=== PATIENT | female | born 1975 | race Caucasian/White ===

== ENCOUNTER → 2017-02-20 | Outpatient (CLI) | payer OTHER ==
[~2017-02-20] MED LIST: ASPIRIN325 PO; B-100 COMPLEX1 EAC1 PO; BACTRIM DS TAB1 EACH PO; EXCEDRIN CAPLE1 EACH PO; GABAPENTIN 100100 MG PO; HUMALOG100 UNIT/1 SUBQ; HUMULIN N100 UNIT/1 SQ; HUMULIN R100 UNIT/M; HUMULINR100 SUBQ; KEFLEX500 M1 PO; LEVEMIR SUBQ; MIGRELIEF CAPL1 EACH; MINOCIN100 MG PO; NORCO 5-325 TA1 EACH PO; NOVOLIN R100 UNIT/1; NOVOLOG100 UNIT/1 SQ; PRILOSEC 10MG C10 M1 PO; TOPAMAX 25 MG T25 M1 PO; TORADOL 10 MG T10 MG PO; TRAMADOL 50 MG50 MG PO; VITAMIN D-32000 UNIT PO
== END ==
LOC: M.MRI 06:57
DX: L03.115 Cellulitis of right lower limb (principal); E11.620 Type 2 diabetes mellitus with diabetic dermatitis

== ENCOUNTER → 2017-07-29 | Outpatient (CLI) | payer OTHER | LOC: M.WC 12:32 | DX: E10.621 Type 1 diabetes mellitus with foot ulcer (principal); L97.521 Non-pressure chronic ulcer of other part of left foot limited to breakdown of skin; L84 Corns and callosities; Z87.891 Personal history of nicotine dependence ==

== ENCOUNTER → 2017-08-05 | Outpatient (CLI) | payer OTHER | LOC: M.WC 00:42 | DX: E10.621 Type 1 diabetes mellitus with foot ulcer (principal); L97.511 Non-pressure chronic ulcer of other part of right foot limited to breakdown of skin; L89.893 Pressure ulcer of other site, stage 3; E10.42 Type 1 diabetes mellitus with diabetic polyneuropathy; Z87.891 Personal history of nicotine dependence ==

== ENCOUNTER 2018-01-04 06:46 | Emergency (ER) | payer OTHER ==
[~2018-01-04] VITALS: Ht 177.8 cm; Wt 96.3 kg
[~2018-01-04 06:46] MED LIST changes: -ASPIRIN325 PO; -BACTRIM DS TAB1 EACH PO; -KEFLEX500 M1 PO; -NORCO 5-325 TA1 EACH PO; -TORADOL 10 MG T10 MG PO
[2018-01-04] MEDS ORDERED: ASPIRIN325 PO (06:58)
[2018-01-04 08:00] LABS: HEMATOCRIT 35.8 % (37.0-47.0); HEMOGLOBIN 11.8 gm/dL (12.0-15.0); MCH 27.4 pg (26.0-34.0); MCHC 32.9 g/dL (28.0-37.0); MCV 83.1 fL (80.0-100.0); MPV 7.4 fl. (7.2-11.1); NUCLEATED RBCS 0 /100WBC; PLATELET COUNT* 227 thou/uL (150-400); RBC 4.31 mil/uL (4.20-5.00); RDW-CV 13.1 % (10.5-14.5); WBC 10.1 thou/uL (4.0-11.0)
[2018-01-04 08:16] LABS: BE -5.7 mmol/L (-2 to +3); HCO3 18.4 mmol/L (22.0-26.0); PCO2 31.4 mmHg (35.0-45.0); PO2 87.2 mmHg (75.0-100.0); pH 7.385 (7.340-7.450)
[2018-01-04 08:24] LABS: CALCIUM 8.8 mg/dL (8.5-10.1); CREATININE 0.9 mg/dL (0.6-1.3); POTASSIUM 3.9 mmol/L (3.5-5.1)
[2018-01-04 08:28] LABS: ALBUMIN 2.6 g/dL (3.4-5.0); MAGNESIUM 2.2 mg/dL (1.8-2.4); TOTAL PROTEIN 7.5 g/dL (6.4-8.2)
[2018-01-04 09:25] LABS: ABSOLUTE LYMPHOCYTES 0.4 thou/uL (0.8-5.3); ABSOLUTE MONOCYTES 0.8 thou/uL (0.0-1.2); ABSOLUTE NEUTROPHILS 8.9 thou/uL (1.6-8.1); PLATELET ESTIMATE ADEQUATE
[2018-01-04] MEDS ORDERED: BACTRIM DS TAB1 EACH PO (09:35)
[2018-01-04] MEDS ORDERED: KEFLEX500 M1 PO (09:35)
[2018-01-04] MEDS ORDERED: NORCO 5-325 TA1 EACH PO (09:36)
[2018-01-04] MEDS ORDERED: TORADOL 10 MG T10 MG PO (09:36)
[2018-01-04 10:13] VITALS: BP 128/51
== END 2018-01-04 10:14 | disposition home or self-care (01) ==
LOC: M.ERS 06:46
PROVIDERS: Personal Emergency Response Attendant
DX: L03.115 Cellulitis of right lower limb (principal); E10.9 Type 1 diabetes mellitus without complications; G43.909 Migraine, unspecified, not intractable, without status migrainosus; Z88.8 Allergy status to other drugs, medicaments and biological substances

== ENCOUNTER → 2018-04-22 | Outpatient (CLI) | payer OTHER ==
[~2018-04-22] MED LIST changes: +ASPIRIN325 PO; +BACTRIM DS TAB1 EACH PO; +KEFLEX500 M1 PO; +NORCO 5-325 TA1 EACH PO; +TORADOL 10 MG T10 MG PO
== END ==
LOC: M.RAD 14:36
DX: M79.89 Other specified soft tissue disorders (principal); M25.521 Pain in right elbow

== ENCOUNTER 2018-05-10 01:59 | Inpatient (IN) | payer OTHER ==
[~2018-05-10] VITALS: Ht 177.8 cm; Wt 106.2 kg
--- NOTE | ~2018-05-10 | CON ---
[address] [address] CONSULTATION Name: CAYLA GAY Room: [place] [address] ADM IN M.R.#: [id number] Admission: 05/10/18 Attend Phys: Judd Crum, Discharge: Date of : 75 Report #: [id number] THIS REPORT FOR: //name// CC: Kelvin Crum DICTATED BY: Kaila Navarro [facility] DATE OF SERVICE: 05/14/2018 Please note at the time of this dictation, the patient was seen and physically examined by myself. REASON FOR CONSULTATION: Ongoing abdominal pain, nausea, vomiting and elevated LFTs. HISTORY OF PRESENT ILLNESS: This is a 43-year-old female who presented to the Emergency Room with worsening of her nausea and vomiting that started prior to her admission. She states she denied any bright red blood or any coffee ground emesis with this. She was also experiencing some abdominal pain in the upper abdomen, particularly in the right upper quadrant. She also noticed that she had been experiencing diarrhea for the past week as well. Her last BM was Thursday of this past week. She also was having some generalized body aches and pains, questionable fever and she had a rash that was noted on her right mosley at that time. The patient was seen by us back in 2008 and had an EGD at that time and was noted to have gastritis. The patient does admit that she takes Mayi Total Body 2 tablets daily, which she has been taking for 15-20 years on a regular basis. She has never had a colonoscopy done either. ALLERGIES: BENADRYL. MEDICATIONS: From home include Mayi aspirin, Mayi Total Body 2 daily, Levemir, Humalog. PAST MEDICAL HISTORY: Diabetic. PAST SURGICAL HISTORY: Tubal ligation, history of migraine headaches and she also had a broken hand and had surgical fixation of that. FAMILY HISTORY: Paternal aunt, pancreatic cancer. SOCIAL HISTORY: She lives with her , former smoker. Alcohol socially and denies any illegal [place] [address] CONSULTATION Name: CAYLA GAY Room: [address]#: [id number] Admission: 05/10/18 Attend Phys: Judd Crum, Discharge: Date of : 75 Report #: [id number] REVIEW OF SYSTEMS: Twelve-point review of systems is essentially negative except what is mentioned in the HPI. PHYSICAL EXAMINATION: VITAL SIGNS: Temperature 36.4, pulse 95, respirations 18, blood pressure 154/61. HEART: Regular rate and rhythm. LUNGS: Clear. ABDOMEN: Soft, positive bowel sounds in all 4 quadrants with right upper quadrant tenderness noted to palpation and into the epigastric area as well as some mild lower abdominal cramping noted as well to palpation. LABORATORY DATA: Hemoglobin on admission was 11.5. She is now 9.2. White count is 4.1, platelets 206. GFR is 91. Total bilirubin is 0.4 and has been normal throughout hospital stay. Alkaline phosphatase currently 306, but has ranged from 203-364 during this hospitalization. ALT 119, on admission was normal at 26, but has gone as high as 173. AST 84, on admission was normal at 23 and has gone up to as high as 408. Ultrasound showed distended gallbladder with mild wall thickening. She had a CCK-PIPIDA that showed 76% ejection fraction, but noted pain during the administration of the medication. IMPRESSION: 1. Nausea and vomiting, continual. 2. Abdominal pain. 3. Chronic nonsteroidal anti-inflammatory drug, aspirin use, 2 Mayi Total Body daily for greater than 15 years. 4. Anemia. 5. Elevated LFTs. 6. Diabetes, uncontrolled. 7. Family history of pancreatic cancer. PLAN: 1. EGD today with Dr. Henderson. 2. Get a GGTP. 3. Further recommendations to be made after the procedure. 4. If the above is negative, may likely consider a GET secondary to her uncontrolled diabetes. Thank you for allowing us to participate in this patient's care. Please do not hesitate to call with any questions in regard to this consult. By: [id number] Berumen MD /nt
--- NOTE | ~2018-05-10 | PROC ---
[facility] [address] [place] [address] PROCEDURE REPORT Name: CAYLA GAY Room: [address] IN ..#: [id number] Admission: 05/10/18 Attend Phys: Judd Crum, Discharge: 05/16/18 Date of : 75 Report #: [id number] THIS REPORT FOR: //name// For GI report, please see the Provation report in Perceptive 7 content. By: 1201Medical Records Staff [place] /[place]
[2018-05-10] MEDS ORDERED: MELOXICAM (02:36)
[2018-05-10] MEDS ORDERED: NOVOLIN R100 UNIT/1 (02:36)
[2018-05-10 02:38] LABS: URINE BLOOD 1+ (Negative); URINE CLARITY CLEAR; URINE COLOR YELLOW; URINE GLUCOSE-RANDOM 3+ (Negative); URINE LEUKOCYTES-REFLEX NEGATIVE (Negative); URINE NITRITE-REFLEX NEGATIVE (Negative); URINE PROTEIN 1+ (Negative); URINE UROBILINOGEN 0.2 E.U./dl (0.2-1.0)
[2018-05-10 02:38] LABS: HEMATOCRIT 36.3 % (37.0-47.0); HEMOGLOBIN 11.5 gm/dL (12.0-15.0); MCH 23.9 pg (26.0-34.0); MCHC 31.8 g/dL (28.0-37.0); MCV 75.2 fL (80.0-100.0); MPV 6.7 fl. (7.2-11.1); NUCLEATED RBCS 0 /100WBC; PLATELET COUNT* 346 thou/uL (150-400); RBC 4.83 mil/uL (4.20-5.00); RDW-CV 16.4 % (10.5-14.5); WBC 14.8 thou/uL (4.0-11.0)
[2018-05-10 02:39] LABS: URINE BILIRUBIN 1+ (Negative); URINE KETONES 3+ (Negative)
[2018-05-10 02:47] LABS: ICTOTEST (BILI CONFIRMATORY) Negative (Negative)
[2018-05-10 03:01] LABS: ALKALINE PHOSPHATASE 203 U/L (46-116); ANION GAP 23 mmol/L (7-16); BUN 12 mg/dL (7-18); CALCIUM 9.4 mg/dL (8.5-10.1); CHLORIDE 98 mmol/L (98-107); CO2 17 mmol/L (21-32); CREATININE 1.6 mg/dL (0.6-1.3); GLUCOSE 150 mg/dL (70-99); LIPASE 47 U/L (73-393); POTASSIUM 3.6 mmol/L (3.5-5.1); SGPT 26 U/L (30-65); SODIUM 138 mmol/L (136-145); TOTAL PROTEIN 7.8 g/dL (6.4-8.2); TROPONIN-I LEVEL <0.06 ng/mL (<0.06)
[2018-05-10 03:33] LABS: SGOT 23 U/L (15-37)
[2018-05-10 03:37] LABS: INFLUENZA A ANTIGEN None Detected (None Detect); INFLUENZA B ANTIGEN None Detected (None Detect)
[2018-05-10 04:39] LABS: BE -3.8 mmol/L (-2 to +3); PCO2 35.9 mmHg (35.0-45.0)
[2018-05-10 04:43] LABS: PO2 34.3 mmHg (75.0-100.0)
[2018-05-10 05:21] LABS: ABSOLUTE LYMPHOCYTES 0.7 thou/uL (0.8-5.3); ABSOLUTE MONOCYTES 0.6 thou/uL (0.0-1.2); ABSOLUTE NEUTROPHILS 13.5 thou/uL (1.6-8.1); ANISOCYTOSIS 1+; PLATELET ESTIMATE ADEQUATE; POIKILOCYTOSIS 1+
[2018-05-10 05:25] LABS: BACTERIA-REFLEX 1-9 Few /HPF (None Seen); CASTS None Seen /LPF (None Seen); CRYSTALS None Seen /LPF (None Seen); MUCUS 0-3 Light strn/LPF (None Seen); SQUAMOUS 0-3 Few /LPF (0-3); URINE RBC 3-10 Few /HPF (0-2); URINE WBC-REFLEX 0-5 Rare /HPF (0-5)
[2018-05-10 09:25] VITALS: BP 105/47
[2018-05-10 09:42] VITALS: BP 104/44
[2018-05-10 16:00] VITALS: BP 134/59
[2018-05-10 16:07] LABS: BE -11.7 mmol/L (-2 to +3); PCO2 23.8 mmHg (35.0-45.0); PO2 107.8 mmHg (75.0-100.0); pH 7.338 (7.340-7.450)
[2018-05-10 20:00] VITALS: BP 124/65
[2018-05-11] VITALS: BP 127/65
--- NOTE | 2018-05-11 03:52 | NUR ---
ASSUMED CARE OF PT AFTETR REPORT AT 1930. PT A&OX4. VSS. PHYSICAL ASSESSMENT COMPLETED AND CHARTED. PT ON RA WITH 96% O2 SAT. PT TRACING SR ON TELE. PT UP ADLIB TO RESTROOM. PT COMPLAINED OF HEADACHE-PAIN MEDS GIVEN PER MAR. PT RESTED WELL ON BED. PHOTOGRAPH TAKEN ON BILATERAL LOWER EXTREMITIES. CALL LIGHT WITHIN REACH.
[2018-05-11 04:55] VITALS: BP 136/72
[2018-05-11 05:06] LABS: HEMATOCRIT 32.2 % (37.0-47.0); HEMOGLOBIN 9.8 gm/dL (12.0-15.0); MCH 23.5 pg (26.0-34.0); MCHC 30.4 g/dL (28.0-37.0); MCV 77.3 fL (80.0-100.0); MPV 7.4 fl. (7.2-11.1); RBC 4.17 mil/uL (4.20-5.00); RDW-CV 16.8 % (10.5-14.5); WBC 6.5 thou/uL (4.0-11.0)
[2018-05-11 05:38] LABS: ALBUMIN 2.3 g/dL (3.4-5.0); MAGNESIUM 2.3 mg/dL (1.8-2.4); POTASSIUM 4.8 mmol/L (3.5-5.1); TOTAL BILIRUBIN 0.8 mg/dL (<0.1-1.0); TOTAL PROTEIN 6.3 g/dL (6.4-8.2)
[2018-05-11 08:00] VITALS: BP 115/56
--- NOTE | 2018-05-11 09:31 | NUR ---
VSS, ASSUMED CARE IN THE AM, ASSESSMEMT PERFORMED AND CHARTED, FALL PRECAUTIONS IN PLACE AND CALL LIGHT IN REACH, PT IS A&O4 AND UP AD PANKAJ, SHE HAS CELLULITIES ON RIGHT LEG, BUT HAS IMPROVED FROM T-1. PT GOAL IS TO SIT UP IN IN CHAIR AND FEEL BETTER, PT IS TRACING SR ON THE MONITOR, WILL FOLLOW WITH PLAN OF CARE.
--- NOTE | 2018-05-11 11:30 | NUR ---
MET WITH PT TO DISCUSS HOME SITUATION/DC PLANNING. PT LIVES WITH S/O, WORKS OUTSIDE THE HOME AND IS INDEPENDENT AND ACTIVE. USES NO EQUIPMENT AND HASN'T HAD HH. DENIES ANY NEEDS AT THIS TIME. WILL FOLLOW
[2018-05-11 13:03] VITALS: BP 122/65
[2018-05-11 13:09] LABS: ABSOLUTE EOSINOPHILS 0.1 thou/uL (0.0-0.7); ABSOLUTE LYMPHOCYTES 1.1 thou/uL (0.8-5.3); ABSOLUTE MONOCYTES 0.5 thou/uL (0.0-1.2); ABSOLUTE NEUTROPHILS 4.4 thou/uL (1.6-8.1); BASOPHILS 0.8 %; HEMATOCRIT 33.4 % (37.0-47.0); HEMOGLOBIN 10.5 gm/dL (12.0-15.0); LYMPHOCYTES 18.5 %; MCHC 31.3 g/dL (28.0-37.0); MCV 76.6 fL (80.0-100.0); MPV 6.9 fl. (7.2-11.1); NUCLEATED RBCS 0 /100WBC; PLATELET COUNT* 238 thou/uL (150-400); POLYS 70.7 %; RBC 4.36 mil/uL (4.20-5.00); RDW-CV 16.9 % (10.5-14.5); WBC 6.2 thou/uL (4.0-11.0)
[2018-05-11 13:21] LABS: ALBUMIN 2.6 g/dL (3.4-5.0); CALCIUM 8.9 mg/dL (8.5-10.1); MAGNESIUM 2.3 mg/dL (1.8-2.4); PHOSPHORUS* 2.2 mg/dL (2.5-4.9); POTASSIUM 4.3 mmol/L (3.5-5.1)
[2018-05-11 13:29] LABS: ANION GAP 22 mmol/L (7-16); BUN 12 mg/dL (7-18); CALCIUM 8.5 mg/dL (8.5-10.1); CHLORIDE 99 mmol/L (98-107); CO2 14 mmol/L (21-32); GLUCOSE 353 mg/dL (70-99); POTASSIUM 4.3 mmol/L (3.5-5.1); SODIUM 135 mmol/L (136-145); TROPONIN-I LEVEL <0.06 ng/mL (<0.06)
[2018-05-11 13:34] LABS: ALBUMIN 2.5 g/dL (3.4-5.0); ALKALINE PHOSPHATASE 364 U/L (46-116); CK-MB MASS 0.9 ng/mL (<0.5-3.6); PHOSPHORUS* 2.2 mg/dL (2.5-4.9); SGOT 302 U/L (15-37); SGPT 173 U/L (30-65); TOTAL BILIRUBIN 0.6 mg/dL (<0.1-1.0); TOTAL PROTEIN 6.9 g/dL (6.4-8.2)
[2018-05-11 13:37] LABS: PCO2 20.1 mmHg (35.0-45.0); PO2 115.5 mmHg (75.0-100.0)
[2018-05-11 13:40] LABS: pH 7.291 (7.340-7.450)
[2018-05-11 17:02] LABS: ALBUMIN 2.2 g/dL (3.4-5.0); CALCIUM 8.1 mg/dL (8.5-10.1); MAGNESIUM 1.9 mg/dL (1.8-2.4); PHOSPHORUS* 1.2 mg/dL (2.5-4.9); POTASSIUM 3.8 mmol/L (3.5-5.1)
--- NOTE | 2018-05-11 17:14 | EKG ---
[place] [address] ELECTROCARDIOGRAM REPORT Name: CAYLA GAY Room: [place] [address] ADM IN M.R.#: [id number] Admission: 05/10/18 Attend Phys: Judd Crum, Discharge: Date of : 75 Report #: [id number] THIS REPORT FOR: //name// [facility] Test Date: 2018-05-11 Test Time: 14:03:16 Pat Name: CAYLA GAY Department: Room: [place] [address] Gender: F Emt Dispatcher: : 1975 Requested By: Judd Crum Order Number: [id number] Elda MD: Roverto Miller Measurements Intervals [place] Rate: 102 P: 68 ME: 136 QRS: 70 QRSD: 112 T: 17 QT: 350 QTc: 456 Interpretive Statements Sinus tachycardia Compared to ECG 12/18/2015 22:36:13 Sinus rhythm no longer present T-wave abnormality no longer present Electronically Signed On 05-11-2018 17:14:16 CDT by Roverto Miller [email or web address] <ELECTRONICALLY SIGNED> By: Roverto Miller MD, [facility] 05/11/18 1714 1403 140 Roverto Miller MD, [facility] /EPI
[2018-05-11 17:57] VITALS: BP 151/76
--- NOTE | 2018-05-11 19:14 | CON ---
[address] [address] CONSULTATION Name: CAYLA GAY Room: [place] [address] ADM IN .R.#: [id number] Admission: 05/10/18 Attend Phys: Judd Crum, Discharge: Date of : 75 Report #: [id number] THIS REPORT FOR: //name// CC: Kelvin Crum DATE OF SERVICE: 05/11/2018 ATTENDING PHYSICIAN: Kelvin Hughes M.D. REASON FOR EVALUATION: Right lower extremity skin and soft tissue infection with cellulitis. HISTORY OF PRESENT ILLNESS: Chart reviewed, patient examined. This is a 43-year-old with diabetes mellitus type 1 who experienced onset of nausea with emesis, feverishness, subsequently developed erythrodermic type eruption involving the right lower extremity distally, primarily painful involving the ankle site. She notes her blood sugars have been somewhat erratic, had a poor p.o. intake due to the nausea with emesis. Due to the concern about infectious etiology, underwent influenza antigen which was negative. Urinalysis showed 3+ glucose, 1+ protein, 0-5 white cells. Lactic acid initially was 2.9, repeat 1.1. Chest x-ray showed no acute process. Subsequent to her admission, lactic acid jumped of 5.8. Liver functions were elevated as well. AST 408, ALT of 170. She was empirically started on antibacterial treatment including ceftriaxone and vancomycin. Overall, she is somewhat improved today. She has persistent pain and seems to be more localized symptoms to her right lower extremity at this point. Does admit to some breathing issues, although that is improved as well. ALLERGIES: DIPHENHYDRAMINE. CURRENT MEDICATIONS: Include vancomycin, enoxaparin, ceftriaxone, ondansetron as needed, acetaminophen, insulin. PAST MEDICAL HISTORY: Diabetes mellitus type 1, vitiligo, history of migraine headaches. SOCIAL HISTORY: Nonsmoker, no ethanol, no illicit drug use. FAMILY HISTORY: Noncontributory. REVIEW OF SYSTEMS: Otherwise, 10-point review of systems is unremarkable except as noted in history of present illness. PHYSICAL EXAMINATION: [place] [address] CONSULTATION Name: CAYLA GAY Room: [address] IN [facility]#: [id number] Admission: 05/10/18 Attend Phys: Judd Crum, Discharge: Date of : 75 Report #: [id number] GENERAL: She appears somewhat ill, not overtly toxic, reasonably well nourished, in [id number] distress. VITAL SIGNS: Temperature 98.3, T-max overnight as of yesterday was 101.3. Pulse 89, respirations 18, blood pressure 115/56. SKIN: Warm, dry, no rashes. HEENT: Normocephalic. Extraocular muscles intact. NECK: Supple. LUNGS: Generally clear to auscultation. HEART: Regular. I do not appreciate any murmur. ABDOMEN: Soft, nontender, nondistended. EXTREMITIES: The right lower extremity has a change of vitiligo, but does have an erythrodermic type eruption that extends up the leg to below the knee. It is more intense noted around the ankle. There is no evidence of tinea pedis. There are some superficial eschars noted at the pretibial site. No evidence of ulcers, no fluctuance, no bullous lesions. Does have palpable pulses distally. GENITOURINARY: Deferred. RECTAL: Deferred. LABORATORY DATA: ABGs: PH 7.380, pCO2 of 35.9, pO2 of 34.3 on room air. Electrolytes: Sodium 133, potassium 4.8, chloride 100, bicarbonate is 15, anion gap of 18, BUN and creatinine 13 and 1.0, glucose of 415. AST of 408, ALT of 170, alkaline phosphatase of 319. CBC: White count of 6.5, H and H 9.8 and 32.2, platelets of 224. Lactic acid peaked at 5.8. Chest x-ray, no acute process. Initial LFTs were otherwise unremarkable. ASSESSMENT: Sepsis with organ dysfunction. Does appear to have skin and soft tissue infection, presumably a staph or strep etiology. We will continue empiric antimicrobial therapy. She has had this presentation in the past, has been utilizing compression which seems to have helped. We will reintroduce that when she is able to tolerate and continue elevation. We will monitor expectantly. This persistent nausea and emesis with the elevated liver functions, consider ultrasound imaging of the biliary tract. <ELECTRONICALLY SIGNED> By: Cristiano Hunter MD 05/11/18 [id number] Hunter MD /nt
[2018-05-11 20:03] VITALS: BP 149/69
[2018-05-11 20:51] LABS: ALBUMIN 2.3 g/dL (3.4-5.0); CALCIUM 8.4 mg/dL (8.5-10.1); MAGNESIUM 1.9 mg/dL (1.8-2.4); PHOSPHORUS* 2.2 mg/dL (2.5-4.9); POTASSIUM 4.2 mmol/L (3.5-5.1)
[2018-05-11 23:08] LABS: HEPATITIS B SURFACE AG Negative (Negative)
[2018-05-12] VITALS (7 sets, daily range): BP systolic 120–157; BP diastolic 54–85
[2018-05-12 01:20] LABS: ALBUMIN 2.1 g/dL (3.4-5.0); CALCIUM 8.5 mg/dL (8.5-10.1); MAGNESIUM 1.8 mg/dL (1.8-2.4); PHOSPHORUS* 2.3 mg/dL (2.5-4.9); POTASSIUM 4.4 mmol/L (3.5-5.1)
[2018-05-12 05:23] LABS: HEMATOCRIT 27.7 % (37.0-47.0); HEMOGLOBIN 8.7 gm/dL (12.0-15.0); MCH 23.9 pg (26.0-34.0); MCHC 31.4 g/dL (28.0-37.0); MPV 7.2 fl. (7.2-11.1); RBC 3.64 mil/uL (4.20-5.00); RDW-CV 16.5 % (10.5-14.5); WBC 5.8 thou/uL (4.0-11.0)
[2018-05-12 06:02] LABS: CALCIUM 8.6 mg/dL (8.5-10.1); CREATININE 0.9 mg/dL (0.6-1.3); MAGNESIUM 1.9 mg/dL (1.8-2.4); POTASSIUM 4.2 mmol/L (3.5-5.1)
[2018-05-12 06:18] LABS: BE -9.5 mmol/L (-2 to +3); PCO2 31.4 mmHg (35.0-45.0); PO2 85.4 mmHg (75.0-100.0); pH 7.314 (7.340-7.450)
[2018-05-12 09:59] LABS: URINE BLOOD NEGATIVE (Negative); URINE CLARITY CLEAR; URINE COLOR YELLOW; URINE GLUCOSE-RANDOM 2+ (Negative); URINE LEUKOCYTES NEGATIVE (Negative); URINE NITRITE NEGATIVE (Negative); URINE PROTEIN TRACE (Negative); URINE SPECIFIC GRAVITY 1.025 (1.005-1.030); URINE UROBILINOGEN 0.2 E.U./dl (0.2-1.0)
[2018-05-12 10:04] LABS: ICTOTEST (BILI CONFIRMATORY) Negative (Negative); URINE BILIRUBIN 1+ (Negative); URINE KETONES 3+ (Negative)
--- NOTE | 2018-05-12 14:01 | NUR ---
ASSUMED CARE OF PATIENT THIS AM AT 0730. PATIENT IS ALERT AND ORIENTED X 4. SHE INITIALLY DENIED PAIN THIS AM, SHE LATER C/O RIGHT LEG PAIN. INSULIN GTT ON THIS AM AND BLOOD SUGARS MONITORED Q 1 HR. PATIENT'S LABS IMPROVED. DR MCDUFFIE NOTIFIED. INSULIN GTT DISCONTINUED. PATIENT PLACED NPO FOR US. IV ANTIBIOTICS AND FLUIDS INFUSED PER ORDER. TELE SHOWS NSR. PATIENT IS RESTING AT THIS TIME AND REMAINS NPO FOR NOW.
[2018-05-12 15:30] LABS: CALCIUM 8.9 mg/dL (8.5-10.1); CREATININE 0.9 mg/dL (0.6-1.3); MAGNESIUM 1.8 mg/dL (1.8-2.4); POTASSIUM 4.2 mmol/L (3.5-5.1)
[2018-05-12 17:45] LABS: ALBUMIN 2.5 g/dL (3.4-5.0); DIRECT BILIRUBIN 0.1 mg/dL (<0.1-0.3); TOTAL BILIRUBIN 0.3 mg/dL (<0.1-1.0); TOTAL PROTEIN 6.1 g/dL (6.4-8.2)
[2018-05-13] VITALS: BP 118/54
[2018-05-13 01:46] LABS: ALBUMIN 2.2 g/dL (3.4-5.0); CALCIUM 8.4 mg/dL (8.5-10.1); CREATININE 0.9 mg/dL (0.6-1.3); MAGNESIUM 1.6 mg/dL (1.8-2.4); PHOSPHORUS* 2.9 mg/dL (2.5-4.9); POTASSIUM 4.2 mmol/L (3.5-5.1)
[2018-05-13 02:07] LABS: GLYCOHEMOGLOBIN (HGB A1C) 11.6 % (4.8-5.6)
[2018-05-13 03:30] VITALS: BP 142/66
--- NOTE | 2018-05-13 04:46 | NUR ---
PATIENT NOT PROGRESSING TOWARDS GOALS: PATIENT HAS HEADACHE UNRELIEVED WITH HYDROCODONE. PATIENT TRIED CAFFEINE WITH NO RELIEF. HEAT/COLD OFFERED, PATIENT DENIES. QUIET/DARK ENVIRONMENT PROVIDED. RIGHT LOWER EXT REMAINS ELEVATED ON PILLOW FOR CELLULITIS. NAUSEA TREATED WITH ZOFRAN X1. HOURLY ROUNDING OBSERVED. CALL LIGHT WITHIN REACH.
[2018-05-13 05:21] LABS: ABSOLUTE BASOPHILS 0.1 thou/uL (0.0-0.2); ABSOLUTE EOSINOPHILS 0.3 thou/uL (0.0-0.7); ABSOLUTE LYMPHOCYTES 1.3 thou/uL (0.8-5.3); ABSOLUTE MONOCYTES 0.4 thou/uL (0.0-1.2); ABSOLUTE NEUTROPHILS 2.2 thou/uL (1.6-8.1); BASOPHILS 1.5 %; EOSINOPHILS 6.3 %; HEMATOCRIT 28.6 % (37.0-47.0); HEMOGLOBIN 9.2 gm/dL (12.0-15.0); LYMPHOCYTES 30.2 %; MCH 24.3 pg (26.0-34.0); MCHC 32.3 g/dL (28.0-37.0); MCV 75.3 fL (80.0-100.0); MONOCYTES 9.9 %; MPV 7.2 fl. (7.2-11.1); NUCLEATED RBCS 0 /100WBC; PLATELET COUNT* 190 thou/uL (150-400); POLYS 52.1 %; RBC 3.79 mil/uL (4.20-5.00); RDW-CV 16.9 % (10.5-14.5); WBC 4.3 thou/uL (4.0-11.0)
[2018-05-13 05:45] LABS: ALBUMIN 2.1 g/dL (3.4-5.0); ALKALINE PHOSPHATASE 308 U/L (46-116); ANION GAP 11 mmol/L (7-16); BUN 6 mg/dL (7-18); CALCIUM 8.3 mg/dL (8.5-10.1); CHLORIDE 106 mmol/L (98-107); CO2 23 mmol/L (21-32); CREATININE 0.9 mg/dL (0.6-1.3); GLUCOSE 245 mg/dL (70-99); PHOSPHORUS* 3.1 mg/dL (2.5-4.9); POTASSIUM 4.7 mmol/L (3.5-5.1); SGOT 142 U/L (15-37); SGPT 137 U/L (30-65); SODIUM 140 mmol/L (136-145); TOTAL BILIRUBIN 0.4 mg/dL (<0.1-1.0); TOTAL PROTEIN 5.9 g/dL (6.4-8.2)
[2018-05-13 08:00] VITALS: BP 139/77
--- NOTE | 2018-05-13 10:42 | CON ---
[address] [address] CONSULTATION Name: CAYLA GAY Room: [address] IN M.R.#: [id number] Admission: 05/10/18 Attend Phys: Judd Crum, Discharge: Date of : 75 Report #: [id number] THIS REPORT FOR: //name// CC: Kelvin Crum DATE OF SERVICE: 05/12/2018 ATTENDING PHYSICIAN: Kelvin Hughes MD CONSULTATION REQUESTED BY: Judd Crum MD REASON FOR CONSULTATION: Febrile illness. Ketoacidosis. Abnormal LFTs. HISTORY OF PRESENT ILLNESS: The patient is a 43-year-old white woman, diabetic for the last 20 years, admitted with nausea, vomiting, diarrhea and ketoacidosis and fever. Now, the patient is telling me that she might be better. On physical examination, complains of right upper abdominal quadrant pain. All in all, the patient has improved. PAST MEDICAL HISTORY: Diabetes mellitus with recurrent episodes of ketoacidosis. Electrolyte imbalance. History of necrobiosis lipoidica diabeticorum of lower extremities, erythematous lesion right leg popliteal region, question etiology. Persistent mild metabolic acidosis. Ketoacidosis. Abnormal liver function test. Presence of bilirubin in urine and abnormal liver function tests. Mild anemia on admission with hemoglobin of 8.7 g/dL today. SOCIAL HISTORY: See H and P. FAMILY HISTORY: See H and P. REVIEW OF SYSTEMS: The patient has not seen cable driller in quite a while. She has no recollection of being vaccinated with influenza, Pneumovax, Prevnar, or diphtheria, tetanus, pertussis lately. Obviously, those are a must. PHYSICAL EXAMINATION: GENERAL: Chronically ill-appearing woman. VITAL SIGNS: Temperature of 101.3 on 05/10/2018 at 5:35 a.m., tachycardic then, tachypneic then. Actually, the patient was complaining of shortness of breath, which obviously is tachypnea secondary to acidosis. Currently, her vital signs as follows: Temperature 98.4, pulse 84, respirations 18, BP 120/54. Height 5 feet 10 inches, weight 220 pounds, up to 231 pounds today. HEENMT: Within range. NECK: Supple, no thyromegaly. LUNGS: [place] [address] CONSULTATION Name: CAYLA GAY [place] Room: [address]#: [id number] Admission: 05/10/18 Attend Phys: Judd Crum, Discharge: Date of : 75 Report #: [id number] BREASTS: Deferred. HEART: S1, S2. No gallop or murmur. ABDOMEN: Tenderness right upper abdominal quadrant, but palpate no gallbladder or liver. PELVIC: Deferred. RECTAL: Deferred. EXTREMITIES: Reveal typical findings of necrobiosis lipoidica diabeticorum in both pretibial areas and an area of erythema and tenderness on the right calf proximally close to the popliteal area. NEUROLOGIC: Grossly within normal limits. LABORATORY DATA: Revealed the following: Sodium 137, potassium 4.2, CO2 low at 17, possibly representing metabolic versus ketoacidosis, glucose 207, elevation of SGOT to 408 down to 302 yesterday. Phosphorus elevated at 2.3, alkaline phosphatase 364 yesterday. SGPT 173 yesterday. Bilirubin was normal. Albumin low at 2.3 g/dL. Ketones are present. The hepatitis A, B and C are negative. WBC on admission 14,800, today is 5800, hemoglobin 8.7 g/dL. The MCV, MCH low, compatible with possible iron deficiency anemia. Platelets normal 203,000. The prealbumin decreased at 13.3. Influenza rapid test negative. test negative obviously since she had tubal ligation in the past. A urinalysis revealed trace protein, 2+ glucose, 3+ ketones, large amount of esterase. Otherwise, the urinalysis is negative. The ABGs revealed a low pH of 7.31, low pCO2 of 31.4, pO2 of 85, bicarbonate low at 15.6, lactate not done on the ABGs, but was elevated previously. These set of gases is on room air. MICROBIOLOGY DATA: Blood cultures were obtained, they remain negative so far. RADIOLOGY EVALUATION: A chest x-ray done 05/10/2018 revealed no acute cardiopulmonary process. ASSESSMENT: 1. Febrile illness with abnormal liver function tests and tenderness right upper abdominal quadrant suggest possibility of cholecystitis, cholangitis. 2. Diabetic ketoacidosis, uncontrolled. 3. Diabetic dermopathy. 4. Malnutrition. SUGGESTIONS: Recommend abdominal ultrasound with particular attention to right upper abdominal quadrant to rule out possibility of gallstones and dilatation of biliary tree. Discontinue vancomycin and Rocephin and use Zosyn 3.375 grams IV every 8 hours. Discussed vaccination with Pneumovax 23, followed 6 months or a year later by Prevnar 13 and yearly vaccination with influenza inactivated viral vaccine, and also vaccination with listeria, tetanus, acellular pertussis every [place] [address] CONSULTATION Name: CAYLA GAY Room: [address] [facility] IN .R.#: [id number] Admission: 05/10/18 Attend Phys: Judd Crum, Discharge: Date of : 75 Report #: [id number] Crum, thank you for requesting my suggestions. <ELECTRONICALLY SIGNED> By: Varun Caceres MD 05/13/18 1042 1149 [id number] Caceres MD /nt
[2018-05-13 12:00] VITALS: BP 166/82
--- NOTE | 2018-05-13 16:06 | NUR ---
PT ORDERS RECEIVED ON 05/13/18. PT UP IN ROOM W/ SON PRESENT INDEP W/O DME SUPPORT. PT AND SON INDICATE NO CONCERNS W/ DISCHARGE TO HOME OR FUNCTIONAL MOBILITY SKILLS. PT DECLINES PT INTERVENTIONS AT THIS TIME. WILL DISCHARGE PT ORDERS.
--- NOTE | 2018-05-13 17:58 | NUR ---
ASSUMED PT CARE AT 0800, AOX4. UP AD PANKAJ. PT COMPLAINS OF ABDOMINAL PAIN, HEADACHE, NAUSEA. PT MEDS GIVEN PER APR. 02 SAT AT 96% AT RA. TRACING SR IN FORM COVERER THIS AM, REMOVED TELE AT NOON. PT IS FOR ACCU CHECK, INSULIN GIVEN. PT LAST BM 05/11/18, ABDOMEN SOFT, ROUND. PT HAVE 2 IV ACCESS INTACT. PT IS NPO FOR PIPIDA SCAN THIS AM. RESULT COME BACK NORMAL. PT IS ON CARB CONTROL. PT IS ON ANTIBIOTIC. PT HAS CELLULITIS, PT ELEVATES RIGHT LEG NOTED VSS, AM ASSESSMENT CHARTED. HOURLY ROUNDING OBSERVED, CALL LIGHT AND BELONGINGS WITHIN REACH. WILL CONTINUE TO MONITOR
--- NOTE | 2018-05-13 19:05 | NUR ---
I HAVE REVIEWED AND AGREE WITH THE ASSESMENT AND NOTES OF CELINA HA ON 05/13/18
[2018-05-13 20:20] VITALS: BP 142/76
[2018-05-14 04:48] LABS: HEMATOCRIT 28.6 % (37.0-47.0); HEMOGLOBIN 9.2 gm/dL (12.0-15.0); MCH 24.1 pg (26.0-34.0); MCV 75.3 fL (80.0-100.0); RBC 3.8 mil/uL (4.20-5.00); RDW-CV 16.8 % (10.5-14.5); WBC 4.1 thou/uL (4.0-11.0)
--- NOTE | 2018-05-14 04:51 | NUR ---
PT CARE ASSUMED AT 1930. ALERT AND ORIENTED X4. CALL LIGHT WITHIN REACH AND BED IN LOW POSITION. C/O PAIN, MEDICATION GIVEN PER EMAR. DENIES NAUSEA AND SOB. SAT MAINTAINED IN RA. HOURLY ROUNDING DONE FOR PT SAFETY.
[2018-05-14 05:18] LABS: ALBUMIN 2.2 g/dL (3.4-5.0); CALCIUM 8.2 mg/dL (8.5-10.1); CREATININE 0.7 mg/dL (0.6-1.3); MAGNESIUM 1.8 mg/dL (1.8-2.4); PHOSPHORUS* 3.7 mg/dL (2.5-4.9); TOTAL BILIRUBIN 0.4 mg/dL (<0.1-1.0); TOTAL PROTEIN 5.9 g/dL (6.4-8.2)
[2018-05-14 08:00] VITALS: BP 154/61
[2018-05-14 12:50] VITALS: BP 160/79
--- NOTE | 2018-05-14 13:40 | NUR ---
ASSUMED PT CARE 0800. PT LYING IN BED, AOX4, UP AD PANKAJ, 02 SAT AT 90'S RA. PT COMPLAINS OF ABDOMINAL PAIN. PT GOAL IS MGMT OF PAIN. PT ON NPO. PT LAST BM 05/11/18. PT IS FOR ACCU CHECK, PT HAD EDG DONE. PT IV ACCESS INTACT, VSS, AM ASSESSMENT CHARTED, MEDS GIVEN PER MAR HOURLY ROUNDING OBSERVED, REMIND TO USE CALL LIGHT, WILL CONTINUE TO MONITOR.
--- NOTE | 2018-05-14 15:50 | NUR ---
THIS RN HAS REVIEWED AND AGREES WITH THE ASSESMENT AND NOTE OF CELINA HA ON 05/14/18
--- NOTE | 2018-05-14 19:24 | NUR ---
PT AOX4, UP AD PANKAJ, O2 SAT 90'S RA. PT COMPLAINS OF ABDOMINAL PAIN. PT HAVE EGD THIS AM. PT NPO AFTER MIDNIGHT. 2 IV ACCESS INTACT. LAST BM 05/11/18 VSS, ASSESSMENT CHARTED, MEDS GIVEN PER MAR. CALL LIGHT WITHIN REACH, HOURLY ROUNDING OBSERVED, WILL CONTINUE TO MONITOR.
[2018-05-14 20:20] VITALS: BP 149/84
[2018-05-15] VITALS: BP 146/72
--- NOTE | 2018-05-15 04:49 | NUR ---
PT CARE ASSUMED AT 1930. SAT MAINTAINED IN RA. CALL LIGHT WITHIN REACH AND BED IN LOW POSITION. ALERT AND ORIENTED X4. C/O PAIN, MEDICATION GIVEN PER EMAR. DENIES NAUSEA AND SOB. HOURLY ROUNDING DONE FOR PT SAFETY.
[2018-05-15 04:53] LABS: HEMOGLOBIN 9.2 gm/dL (12.0-15.0); MPV 7.2 fl. (7.2-11.1); NUCLEATED RBCS 0 /100WBC
[2018-05-15 04:55] LABS: HEMATOCRIT 28.4 % (37.0-47.0); MCH 24.6 pg (26.0-34.0); MCHC 32.6 g/dL (28.0-37.0); MCV 75.4 fL (80.0-100.0); PLATELET COUNT* 207 thou/uL (150-400); RBC 3.76 mil/uL (4.20-5.00); RDW-CV 16.6 % (10.5-14.5); WBC 4.4 thou/uL (4.0-11.0)
[2018-05-15 05:20] LABS: ALBUMIN 2.1 g/dL (3.4-5.0); ALKALINE PHOSPHATASE 315 U/L (46-116); ANION GAP 8 mmol/L (7-16); BUN 6 mg/dL (7-18); CHLORIDE 103 mmol/L (98-107); CHOLESTEROL 150 mg/dL (<200); CO2 27 mmol/L (21-32); CREATININE 0.7 mg/dL (0.6-1.3); GLUCOSE 250 mg/dL (70-99); HDL CHOLESTEROL 35 mg/dL (>40); LDL CHOLESTEROL 89 mg/dL (<100); SGOT 70 U/L (15-37); SGPT 102 U/L (30-65); SODIUM 138 mmol/L (136-145); TC:HDL 4.3 Ratio (Not establshd); TOTAL BILIRUBIN 0.4 mg/dL (<0.1-1.0); TOTAL PROTEIN 5.8 g/dL (6.4-8.2); TRIGLYCERIDE 130 mg/dL (<150); VLDL 26 mg/dL (<40)
[2018-05-15 05:31] LABS: SERUM ASSESSMENT CLEAR
[2018-05-15 06:53] LABS: ABSOLUTE BASOPHILS 0.1 thou/uL (0.0-0.2); ABSOLUTE EOSINOPHILS 0.2 thou/uL (0.0-0.7); ABSOLUTE LYMPHOCYTES 1.1 thou/uL (0.8-5.3); ABSOLUTE MONOCYTES 0.5 thou/uL (0.0-1.2); ABSOLUTE NEUTROPHILS 2.5 thou/uL (1.6-8.1); ANISOCYTOSIS 1+; HYPOCHROMASIA 1+; PLATELET ESTIMATE ADEQUATE; POIKILOCYTOSIS 1+
[2018-05-15 12:15] VITALS: BP 160/71
[2018-05-15 14:08] LABS: IgA 179 mg/dL (87-352); IgG 711 mg/dL (700-1600); IgM 40 mg/dL (26-217)
--- NOTE | 2018-05-15 17:49 | NUR ---
PT TO UNIT FROM PACU AT APPROX 1230. ALL VSS ON 4L. C/O ABDOMINAL PAIN-MEDICATED PER EMAR. DRESSING TO ABD CDI. EDUCATED ON SAFETY AND PLAN OF CARE. TOLERATING CLEAR LIQUID DIET. PLEASE SEE ASSESSMENT FOR ADDITIONAL INFORMATION. WILL CONTINUE TO MONITOR
[2018-05-15 18:45] VITALS: BP 153/89
[2018-05-15 20:20] VITALS: BP 142/76
[2018-05-16 04:00] VITALS: BP 147/78
--- NOTE | 2018-05-16 04:51 | NUR ---
PT CARE ASSUMED AT 1930. ALERT AND ORIENTED X4. SAT MAINTAINED IN 2L NC FROM MN. CALL LIGHT WITHIN REACH AND BED IN LOW POSITION. C/O PAIN, MEDICATION GIVEN PER EMAR. DENIES NAUSEA. DRESSING C/D/I. HOURLY ROUNDING DONE FOR PT SAFETY.
[2018-05-16 08:20] VITALS: BP 151/66
[2018-05-16 12:00] VITALS: BP 137/56
[2018-05-16 13:38] LABS: ABSOLUTE BASOPHILS 0.1 thou/uL (0.0-0.2); ABSOLUTE EOSINOPHILS 0.2 thou/uL (0.0-0.7); ABSOLUTE LYMPHOCYTES 1.5 thou/uL (0.8-5.3); ABSOLUTE MONOCYTES 0.3 thou/uL (0.0-1.2); ABSOLUTE NEUTROPHILS 4.2 thou/uL (1.6-8.1); BASOPHILS 1.1 %; EOSINOPHILS 2.7 %; HEMATOCRIT 31.1 % (37.0-47.0); HEMOGLOBIN 10.1 gm/dL (12.0-15.0); LYMPHOCYTES 23.4 %; MCH 24.5 pg (26.0-34.0); MCHC 32.5 g/dL (28.0-37.0); MCV 75.6 fL (80.0-100.0); MONOCYTES 4.7 %; MPV 7.1 fl. (7.2-11.1); NUCLEATED RBCS 0 /100WBC; PLATELET COUNT* 246 thou/uL (150-400); POLYS 68.1 %; RBC 4.12 mil/uL (4.20-5.00); RDW-CV 16.6 % (10.5-14.5); WBC 6.2 thou/uL (4.0-11.0)
[2018-05-16] MEDS ORDERED: PROTONIX40 M2 PO (13:57)
[2018-05-16] MEDS ORDERED: NORCO 5-325 TA1 EACH PO (13:58)
[2018-05-16] MEDS ORDERED: ONDANSETRON HCL4 M2 PO (13:58)
[2018-05-16 13:59] LABS: ALBUMIN 2.4 g/dL (3.4-5.0); CALCIUM 8.3 mg/dL (8.5-10.1); CREATININE 0.8 mg/dL (0.6-1.3); POTASSIUM 3.2 mmol/L (3.5-5.1); TOTAL BILIRUBIN 0.6 mg/dL (<0.1-1.0); TOTAL PROTEIN 6.4 g/dL (6.4-8.2)
--- NOTE | 2018-05-16 14:28 | NUR ---
PT FULLY DRESSED. REFUSED PICTURE OF LEG
[2018-05-16 14:30] VITALS: BP 137/56
[2018-05-16 14:44] LABS: ESR (SEDRATE) 32 mm/hr (0-20)
[2018-05-16 14:46] VITALS: BP 137/56
--- NOTE | 2018-05-16 14:46 | NUR ---
PATIENT IS ALERT AND ORIENTED TODAY VERY PLEASANT. UP AD PANKAJ IN ROOM, NO COMPLIANTS OF ANY KIND TODAY, SOME MILD PAIN THAT IS CONTROLLED WITH SCHEDULED TRAMADOL. NO NAUSEA TODAY. PATIENT IS BEING DISCHARGED TO HOME TODAY. DISCHARGE INSTRUCTIONS AND PRESCRIPTIONS GIVEN TO PATIENT. QUESTIONS ANSWERED FOR PATIENT AND FAMILY. STERI STRIPS AND SURE SITE CHANGED PER PROVIDER ORDERS. LEFT VIA WHEEL CHAIR WITH FAMILY TO HOME.
--- NOTE | 2018-05-17 14:05 | OP ---
[address] [address] OPERATIVE REPORT Name: CAYLA GAY Room: [address] IN .R.#: [id number] Admission: 05/10/18 Attend Phys: Judd Crum, Discharge: 05/16/18 Date of : 75 Report #: [id number] THIS REPORT FOR: //name// CC: Kelvin Crum DATE OF SERVICE: 05/15/2018 PREOPERATIVE DIAGNOSES: Chronic cholecystitis and elevated liver enzymes. POSTOPERATIVE DIAGNOSES: Acute cholecystitis and elevated liver enzymes. PROCEDURE: Laparoscopic cholecystectomy and liver biopsy. SURGEON: Ashish Ambrose DO. AS400 OPERATOR: Riccardo Reyna. SECOND PERSONAL FINANCIAL REPRESENTATIVE: Lizy Aguiar. ANESTHESIA: General endotracheal. ESTIMATED BLOOD LOSS: Less than 30 mL. COMPLICATIONS: None. DESCRIPTION OF PROCEDURE: After obtaining proper consents and discussing risks and complications with the patient, she was taken to the operating room, laid in the supine position, administered general anesthesia. She was then prepped and draped in the usual fashion. Time-out was performed. We confirmed the appropriate patient and procedure. Preoperative antibiotics had been given. SCDs were in place. We then made a small supraumbilical skin incision with a #11 scalpel blade. This was carried down through the skin into the subcutaneous tissue using electrocautery for hemostasis. Once the fascia was encountered, it was incised along the midline, grasped and elevated with Beau clamps. The peritoneum was then bluntly opened using a hemostat. We then placed 2-0 Vicryl sutures in a [id number] fashion to secure the Agusto trocar, which was then inserted and insufflation was begun. Once insufflation was complete, full visual inspection of the anterior abdominal organs was performed. This revealed an extremely fatty appearing liver. The gallbladder was distended and thick walled with pericholecystic fluid surrounding it. We then placed three more 5 mm trocars under direct vision. We were then able to grasp and elevate the gallbladder. The hepatoduodenal ligament was then stripped down until we could visualize the cystic duct and cystic artery. There appeared [place] [address] OPERATIVE REPORT Name: CAYLA GAY Room: [address]#: [id number] Admission: 05/10/18 Attend Phys: Judd Crum, Discharge: 05/16/18 Date of : 75 Report #: [id number] going anterior to the duct. I did use immunofluorescence with indocyanine green dye which had been given in the preoperative holding area to reveal that this was indeed an artery and not a duct. I then dissected this artery out. It was clipped proximally and distally and then divided. The cystic duct was then noted to be behind it and again using immunofluorescence we were able to visualize the cystic duct very easily. We obtained a critical view of safety including the common hepatic duct and common bile duct, there was also noted to be another artery, posterior to the duct going directly into the gallbladder. The cystic duct was then clipped proximally and distally and divided and then the small artery behind it going directly into the gallbladder was also clipped and divided. The gallbladder was then removed from the liver bed using electrocautery. Once this was complete, the gallbladder was placed into an Endopouch. The liver bed was then checked for any leak or bleeding. Electrocautery was used to maintain hemostasis. We copiously irrigated the area and checked the cystic duct and cystic artery stumps as well for any leak or bleeding, there was none identified. We then turned our attention to performing liver biopsy, which was done using a Monopty spring loaded liver biopsy needle. This was inserted through the anterior abdominal wall, and three core needle biopsies were taken. Electrocautery was immediately used to maintain hemostasis where the biopsy sites were performed. We again copiously irrigated and assured hemostasis with the liver biopsy sites and then checked again in the gallbladder fossa, cystic duct and cystic artery stumps. They all appeared dry again. We then stopped the insufflation. The air was released, the trocars were removed. The gallbladder was removed through the umbilical incision. The umbilical fascia was then closed using the 2 previously placed 0 Vicryl sutures plus 2 additional 0 Vicryl suture. Skin incisions were all closed using 4-0 Monocryl subcuticular stitches. Mastisol, Steri-Strips, sterile OpSite and pressure dressings were placed. The patient was awakened in the operating room and transported to the recovery room in stable condition <ELECTRONICALLY SIGNED> By: Ashish Ambrose DO 05/17/18 1405 0929 1023Ashwetha Ambrose DO /nt
[2018-05-17 19:07] LABS: ANA INTERPRETATION Negative (())
[2018-05-17] MEDS ORDERED: BISACODYL SUPP10 MG RECTAL (20:26)
[2018-05-17] MEDS ORDERED: MIRALAX17 GM PO (20:26)
--- NOTE | 2018-05-18 11:08 | PATH ---
[address] [address] PATHOLOGY RPT PROCEDURE Name: CATALINA GAY Room: [address] IN ..#: [id number] Admission: 05/10/18 Date of : 75 Discharge: 05/16/18 Report #: [id number] Path Case #: [id number] [facility] Accession Number: [id number] . 01 Material submitted: . ANTRUM BIOPSY H PYLORI . 01 Clinical history: . None provided . 02 Diagnosis: Antrum biopsy: - Moderate nonspecific chronic antral gastritis, negative for Helicobacter pylori organisms and dysplasia. (ZULMA:pit 05/17/2018) . Special stain: H. pylori immuno QTP/05/17/2018 . 02 Electronically signed: . Emory Ga MD, Pathologist NPI- [id number] . 01 Gross description: . Received in formalin labeled "Catalina Gay, antrum BX for H. pylori," is a single segment of davis soft tissue measuring 0.6 cm in maximum dimension. The specimen is entirely submitted in cassette A1. (TSD; 05/14/2018) TOB/TOB . 02 Pathologist provided ICD-10: K29.50 . 02 CPT . 508053 Specimen Comment: A courtesy copy of this report has been sent to Specimen Comment: [phone], , , . Specimen Comment: Report sent to ,DR MCDUFFIE, / DR CLEARY Specimen Comment: DR CRUZ Specimen Comment: A duplicate report has been generated due to demographic updates. Performed at: [address], [place] [id number] MD Trevor Magana MD Phone: [phone] Performed at: [address] [id number] [address] [address] PATHOLOGY RPT PROCEDURE Name: CATALINA GAY Room: [address] IN M.R.#: [id number] Admission: 05/10/18 Date of : 75 Discharge: 05/16/18 Report #: [id number] Path Case #: [id number] MD Emory Ga MD Phone: [phone]
--- NOTE | 2018-05-20 11:08 | PATH ---
[address] [address] PATHOLOGY RPT PROCEDURE Name: CATALINA GAY Room: [address] IN [facility]#: [id number] Admission: 05/10/18 Date of : 75 Discharge: 05/16/18 Report #: [id number] Path Case #: [id number] [facility] Accession Number: [id number] . 01 Material submitted: . PART A: GALLBLADDER PART B: LIVER BIOPSY . 01 Clinical history: . Acute appendicitis . 02 Diagnosis: A. Gallbladder: - Chronic cholecystitis. . B. Liver biopsy: - Normal liver tissue. See comment. . (ZULMA:nicole; 05/19/2018) MBZaynab/05/19/2018 . 02 Comment: Multiple tissue cores show normal liver. Properly controlled special stains support the diagnosis with results as follows: . Iron: Negative PAS with and without diastase: Negative for PAS positive globules Trichrome and reticulin: Normal hepatic plates without fibrosis . Reviewed with Dr. Kayla Leonard who agrees with the diagnosis. . (ZULMA:nicole; 05/19/2018) . 02 Electronically signed: . Emory Ga MD, Pathologist NPI- [id number] . 01 Gross description: . A. The specimen is received in formalin, labeled "Catalina Gay, gallbladder" and consists of a previously opened, rolon-davis, smooth, and focally hemorrhagic gallbladder measuring 6.9 cm in length and up to 2.3 cm in diameter. The margin is inked black. No calculi are present within the container or lumen. The mucosa is davis-green with yellow flecks and a wall ranging from 0.1-0.3 cm. The wall is focally edematous. No polyps or mass lesions are identified. Selling Specialist sections are submitted in A1. . B. The specimen is received in formalin, labeled "Catalina Gay, [place] [address] PATHOLOGY RPT PROCEDURE Name: CATALINA GAY L Room: [address]#: [id number] Admission: 05/10/18 Date of : 75 Discharge: 05/16/18 Report #: [id number] Path Case #: [id number] biopsy" and consists of 3 delicate davis-brown needle cores measuring between 1.5 cm and 1.8 cm in length and 0.1 cm each in diameter. They are entirely submitted in B1. (SDY; 05/17/2018) SYU/SYU . 02 Pathologist provided ICD-10: K81.1, A41.9, E11.10, K35.80 . 02 CPT . 544420, 956069, 379857, 380346, 888571, 985950, 485332 Specimen Comment: A courtesy copy of this report has been sent to Specimen Comment: [phone], , , . Specimen Comment: Report sent to ,DR MCDUFFIE,DR CLEARY Specimen Comment: DR CRUZ Specimen Comment: A duplicate report has been generated due to demographic updates. Performed at: [address], [place] [id number] MD Trevor Magana MD Phone: [phone] Performed at: 02 [facility] [address], [place], [place] [id number] MD Emory Ga MD Phone: [phone]
== END 2018-05-16 14:45 | disposition home or self-care (01) | DRG 853 ==
LOC: M.ERS 01:59 → M.2W 04:49 → M.TBA-ER 04:49 → M.2W 09:58
PROVIDERS: Emergency Medicine Emergency Medical Services; Internal Medicine; Internal Medicine Gastroenterology; Surgery; ADMIT Family Medicine
PROC: 0DB78ZX Excision of Stomach, Pylorus, Via Natural or Artificial Opening Endoscopic, Diagnostic (ICD-10-PCS; principal; 2018-05-14)
PROC: 0FT44ZZ Resection of Gallbladder, Percutaneous Endoscopic Approach (ICD-10-PCS; 2018-05-15)
PROC: 0FB04ZX Excision of Liver, Percutaneous Endoscopic Approach, Diagnostic (ICD-10-PCS; 2018-05-15)
DX: A41.9 Sepsis, unspecified organism (principal); E10.10 Type 1 diabetes mellitus with ketoacidosis without coma; L03.115 Cellulitis of right lower limb; E46 Unspecified protein-calorie malnutrition; K80.42 Calculus of bile duct with acute cholecystitis without obstruction; R65.20 Severe sepsis without septic shock; D64.9 Anemia, unspecified; R74.8 Abnormal levels of other serum enzymes; E10.65 Type 1 diabetes mellitus with hyperglycemia; G43.909 Migraine, unspecified, not intractable, without status migrainosus; E66.01 Morbid (severe) obesity due to excess calories; Z68.33 Body mass index [BMI] 33.0-33.9, adult; Z79.899 Other long term (current) drug therapy; Z88.8 Allergy status to other drugs, medicaments and biological substances; Z80.0 Family history of malignant neoplasm of digestive organs; Z83.3 Family history of diabetes mellitus; Z87.891 Personal history of nicotine dependence

== ENCOUNTER 2018-05-17 17:30 | Emergency (ER) | payer OTHER ==
[~2018-05-17] VITALS: Ht 177.8 cm; Wt 90.7 kg
[~2018-05-17 17:30] MED LIST changes: +MELOXICAM; +ONDANSETRON HCL4 M2 PO; +PROTONIX40 M2 PO
[2018-05-17 18:12] LABS: ABSOLUTE BASOPHILS 0.1 thou/uL (0.0-0.2); ABSOLUTE EOSINOPHILS 0.1 thou/uL (0.0-0.7); ABSOLUTE LYMPHOCYTES 0.8 thou/uL (0.8-5.3); ABSOLUTE MONOCYTES 0.4 thou/uL (0.0-1.2); ABSOLUTE NEUTROPHILS 5.6 thou/uL (1.6-8.1); BASOPHILS 1.3 %; EOSINOPHILS 1.3 %; HEMATOCRIT 34.7 % (37.0-47.0); LYMPHOCYTES 11.8 %; MCH 23.8 pg (26.0-34.0); MCHC 31.7 g/dL (28.0-37.0); MCV 75.1 fL (80.0-100.0); MONOCYTES 5.9 %; NUCLEATED RBCS 0 /100WBC; PLATELET COUNT* 318 thou/uL (150-400); POLYS 79.7 %; RBC 4.61 mil/uL (4.20-5.00); RDW-CV 16.7 % (10.5-14.5)
[2018-05-17 18:26] LABS: ALBUMIN 2.9 g/dL (3.4-5.0); CALCIUM 9.5 mg/dL (8.5-10.1); CREATININE 0.7 mg/dL (0.6-1.3); POTASSIUM 3.6 mmol/L (3.5-5.1); TOTAL BILIRUBIN 0.7 mg/dL (<0.1-1.0); TOTAL PROTEIN 7.5 g/dL (6.4-8.2)
[2018-05-17 18:29] LABS: URINE BILIRUBIN NEGATIVE (Negative); URINE BLOOD TRACE (Negative); URINE CLARITY CLEAR; URINE COLOR YELLOW; URINE GLUCOSE-RANDOM NEGATIVE (Negative); URINE KETONES 2+ (Negative); URINE LEUKOCYTES-REFLEX NEGATIVE (Negative); URINE NITRITE-REFLEX NEGATIVE (Negative); URINE PROTEIN NEGATIVE (Negative); URINE UROBILINOGEN 0.2 E.U./dl (0.2-1.0)
[2018-05-17] MEDS ORDERED: MIRALAX17 GM PO (20:26)
[2018-05-17] MEDS ORDERED: BISACODYL SUPP10 MG RECTAL (20:26)
[2018-05-17 20:58] VITALS: BP 170/83
== END 2018-05-17 21:00 | disposition home or self-care (01) ==
LOC: M.ERS 17:30
PROVIDERS: Nurse Practitioner Family
DX: K59.00 Constipation, unspecified (principal); R11.2 Nausea with vomiting, unspecified; G43.909 Migraine, unspecified, not intractable, without status migrainosus; E10.9 Type 1 diabetes mellitus without complications; Z88.6 Allergy status to analgesic agent; Z98.890 Other specified postprocedural states

== ENCOUNTER 2018-07-14 17:08 | Emergency (ER) | payer OTHER ==
[~2018-07-14] VITALS: Ht 177.8 cm; Wt 98.4 kg
[~2018-07-14 17:08] MED LIST changes: +BISACODYL SUPP10 MG RECTAL; +MIRALAX17 GM PO
[2018-07-14 17:16] VITALS: BP 133/55
[2018-07-14 17:58] LABS: ABSOLUTE BASOPHILS 0.1 thou/uL (0.0-0.2); ABSOLUTE EOSINOPHILS 0.2 thou/uL (0.0-0.7); ABSOLUTE LYMPHOCYTES 1.3 thou/uL (0.8-5.3); ABSOLUTE MONOCYTES 0.6 thou/uL (0.0-1.2); ABSOLUTE NEUTROPHILS 5.5 thou/uL (1.6-8.1); EOSINOPHILS 2.8 %; HEMATOCRIT 32.8 % (37.0-47.0); HEMOGLOBIN 10.9 gm/dL (12.0-15.0); LYMPHOCYTES 17.2 %; MCH 24.5 pg (26.0-34.0); MCHC 33.2 g/dL (28.0-37.0); MCV 73.7 fL (80.0-100.0); MONOCYTES 7.3 %; MPV 7.1 fl. (7.2-11.1); NUCLEATED RBCS 0 /100WBC; PLATELET COUNT* 272 thou/uL (150-400); POLYS 71.7 %; RBC 4.44 mil/uL (4.20-5.00); RDW-CV 16.1 % (10.5-14.5); WBC 7.6 thou/uL (4.0-11.0)
[2018-07-14 18:04] LABS: CALCIUM 9.6 mg/dL (8.5-10.1); POTASSIUM 4.1 mmol/L (3.5-5.1)
[2018-07-14 18:09] LABS: TOTAL BILIRUBIN 0.6 mg/dL (<0.1-1.0); TOTAL PROTEIN 7.9 g/dL (6.4-8.2)
[2018-07-14] MEDS ORDERED: BACTRIM DS TAB1 EACH PO (21:19)
[2018-07-14] MEDS ORDERED: NORCO 5-325 TA1 EACH PO (22:06)
[2018-07-14 22:53] VITALS: BP 155/63
== END 2018-07-14 22:56 | disposition home or self-care (01) ==
LOC: M.ERS 17:08 → M.TBA-ER 19:15 → M.ERS 19:15
PROVIDERS: Nurse Practitioner Family
DX: L03.115 Cellulitis of right lower limb (principal); E10.9 Type 1 diabetes mellitus without complications; G43.909 Migraine, unspecified, not intractable, without status migrainosus; Z88.8 Allergy status to other drugs, medicaments and biological substances; Z90.49 Acquired absence of other specified parts of digestive tract

== ENCOUNTER 2018-11-18 17:27 | Emergency (ER) | payer OTHER ==
[~2018-11-18] VITALS: Ht 177.8 cm; Wt 99.8 kg
[2018-11-18] MEDS ORDERED: ANTIBIOTIC (17:33)
[2018-11-18] MEDS ORDERED: KEFLEX500 M1 PO (19:40)
[2018-11-18] MEDS ORDERED: NORCO 5-325 TA1 EAC1 PO (19:40)
[2018-11-18 20:10] VITALS: BP 149/76
== END 2018-11-18 20:11 | disposition home or self-care (01) ==
LOC: M.ERS 17:27
DX: S62.637B Displaced fracture of distal phalanx of left little finger, initial encounter for open fracture (principal); E10.9 Type 1 diabetes mellitus without complications; G43.909 Migraine, unspecified, not intractable, without status migrainosus; Z90.49 Acquired absence of other specified parts of digestive tract; W34.00XA Accidental discharge from unspecified firearms or gun, initial encounter; Y93.89 Activity, other specified; Y92.89 Other specified places as the place of occurrence of the external cause; Y99.8 Other external cause status

== ENCOUNTER 2020-02-16 16:44 | Inpatient (IN) | payer OTHER ==
[~2020-02-16] VITALS: Ht 177.8 cm; Wt 105.2 kg
[~2020-02-16 16:44] MED LIST changes: +ANTIBIOTIC; +NORCO 5-325 TA1 EAC1 PO
[2020-02-16 16:49] VITALS: BP 134/76
[2020-02-16] MEDS ORDERED: MINOCYCLINE HC100 M2 PO (16:53)
[2020-02-16] MEDS ORDERED: FLEXERIL PO (16:53)
[2020-02-16] MEDS ORDERED: NEXIUM 40 MG CA40 M1 PO (16:54)
[2020-02-16 17:54] LABS: ABSOLUTE EOSINOPHILS 0.1 thou/uL (0.0-0.7); ABSOLUTE LYMPHOCYTES 1.3 thou/uL (0.8-5.3); ABSOLUTE MONOCYTES 0.5 thou/uL (0.0-1.2); ABSOLUTE NEUTROPHILS 3.2 thou/uL (1.6-8.1); BASOPHILS 0.7 %; HEMATOCRIT 37.9 % (37.0-47.0); HEMOGLOBIN 11.5 gm/dL (12.0-15.0); LYMPHOCYTES 26.3 %; MCHC 30.3 g/dL (28.0-37.0); MCV 76.1 fL (80.0-100.0); MONOCYTES 9.1 %; MPV 7.1 fl. (7.2-11.1); NUCLEATED RBCS 0 /100WBC; PLATELET COUNT* 262 thou/uL (150-400); POLYS 62.9 %; RBC 4.97 mil/uL (4.20-5.00); RDW-CV 14.8 % (10.5-14.5); WBC 5.1 thou/uL (4.0-11.0)
[2020-02-16 18:02] LABS: INR 0.9; POTASSIUM 4.7 mmol/L (3.5-5.1); PROTIME 10.1 Seconds (9.20-11.50)
[2020-02-16 18:13] LABS: ALBUMIN 3.2 g/dL (3.4-5.0); TOTAL BILIRUBIN 0.7 mg/dL (<0.1-1.0); TOTAL PROTEIN 7.8 g/dL (6.4-8.2)
[2020-02-16 19:28] LABS: BE -18.3 mmol/L (-2 to +3); PCO2 VENOUS 32.5 mmHg (41.0-51.0); PO2 VENOUS 30.9 mmHg (35.0-45.0)
[2020-02-16 19:45] VITALS: BP 121/70
[2020-02-16 20:59] VITALS: BP 127/48
[2020-02-17] VITALS (39 sets, daily range): BP systolic 117–174; BP diastolic 47–82
[2020-02-17 00:43] LABS: CALCIUM 7.9 mg/dL (8.5-10.1); CREATININE 1.1 mg/dL (0.6-1.3); POTASSIUM 5.5 mmol/L (3.5-5.1)
[2020-02-17 02:56] LABS: ALBUMIN 2.8 g/dL (3.4-5.0); PHOSPHORUS* 4.7 mg/dL (2.5-4.9); TOTAL BILIRUBIN 0.5 mg/dL (<0.1-1.0); TOTAL PROTEIN 6.7 g/dL (6.4-8.2)
--- NOTE | 2020-02-17 02:56 | NUR ---
PATIENT ARRIVED ON FLOOR FROM FROM ER AT ABOUT 2000. PATIENT ADMISSION HISTORY AND ASSESSMENT WAS COMPLETED CHARTED. IV FLUIDS AND ANTIBIOTICS WERE STARTED ORDERED. PATIENT BLOOD SUGAR WAS 333 INSULIN 9 UNITS WERE GIVEN AT 2200. PATIENT HAD CRITICAL LABS RESULTS CALLED AT 0048 OF GLUCOSE 521 AND CO2 OF 5. ORDERS WERE RECEIVED AT 0140 FOR INSULIN DRIP, AND TRASFER TO ICU. REPORT WAS GIVEN TO SHAW HA. PATIENT WAS TRANSFERRED TO ICU AT ABOUT 0245.
--- NOTE | 2020-02-17 03:00 | NUR ---
RECEIVED REPORT AND TRANSFERRED TO ICU BED 01. PT EXTREMELY SOA, O2 ON AT 2L/NC WITH SAT OF 100%, HOB ELEVATED. BS OBTAINED OF >500, LAB DRAWN. SECOND IV STARTED. INSULIN GTT STARTED AT 10 UNITS/HR. TELEMETRY APPLIED SHOWING ST. WILL START BICARB GTT WHEN AVAILABLE. PT REMAINS IN ISOLATION FOR COVID. WILL MONITOR CLOSELY.
[2020-02-17 04:52] LABS: ALBUMIN 3.1 g/dL (3.4-5.0); ANION GAP 29 mmol/L (7-16); BUN 20 mg/dL (7-18); CALCIUM 8.4 mg/dL (8.5-10.1); CHLORIDE 97 mmol/L (98-107); CREATININE 1.3 mg/dL (0.6-1.3); MAGNESIUM 2.2 mg/dL (1.8-2.4); PHOSPHORUS* 5.2 mg/dL (2.5-4.9); POTASSIUM 5.8 mmol/L (3.5-5.1); SODIUM 131 mmol/L (136-145)
[2020-02-17 04:54] LABS: CO2 < 5 mmol/L (21-32); GLUCOSE 567 mg/dL (70-99)
[2020-02-17 06:17] LABS: HEMATOCRIT 37.3 % (37.0-47.0); HEMOGLOBIN 11.4 gm/dL (12.0-15.0); MCH 23.5 pg (26.0-34.0); MCHC 30.6 g/dL (28.0-37.0); MCV 76.7 fL (80.0-100.0); MPV 6.5 fl. (7.2-11.1); NUCLEATED RBCS 0 /100WBC; PLATELET COUNT* 266 thou/uL (150-400); RBC 4.87 mil/uL (4.20-5.00); RDW-CV 14.9 % (10.5-14.5); WBC 8.6 thou/uL (4.0-11.0)
[2020-02-17 06:30] LABS: ALBUMIN 2.9 g/dL (3.4-5.0); CALCIUM 8.1 mg/dL (8.5-10.1); CREATININE 1.2 mg/dL (0.6-1.3); PHOSPHORUS* 4.3 mg/dL (2.5-4.9)
[2020-02-17 06:32] LABS: BE -21.9 mmol/L (-2 to +3); PCO2 VENOUS 25.4 mmHg (41.0-51.0); PO2 VENOUS 43.9 mmHg (35.0-45.0)
[2020-02-17 06:35] LABS: CALCIUM 8.5 mg/dL (8.5-10.1); CREATININE 1.3 mg/dL (0.6-1.3)
[2020-02-17 06:36] LABS: POTASSIUM 4.7 mmol/L (3.5-5.1)
--- NOTE | 2020-02-17 07:00 | NUR ---
PT CONT TO HAVE HOARSE VOICE WITH DRY HACKY COUGH. CONT TO BE SOA, O2 ON AT 2L/NC. SEE FLOW SHEET FOR HOURLY ACCUCHECKS AND INSULIN GTT ADJUSTMENTS. TELEMETRY CONT TO SHOW ST. I CALLED PT'S AND INFORMED HER ABOUT PT'S CONDITION AND IMPROVEMENT. REMAINS IN ISOLATION.
[2020-02-17 07:29] LABS: ABSOLUTE LYMPHOCYTES 0.9 thou/uL (0.8-5.3); ABSOLUTE MONOCYTES 0.3 thou/uL (0.0-1.2); ABSOLUTE NEUTROPHILS 7.4 thou/uL (1.6-8.1)
[2020-02-17 07:30] LABS: HYPOCHROMASIA Occasional; PLATELET ESTIMATE ADEQUATE
[2020-02-17 10:06] LABS: URINE BLOOD TRACE (Negative); URINE CLARITY CLEAR; URINE COLOR YELLOW; URINE GLUCOSE-RANDOM 1+ (Negative); URINE LEUKOCYTES-REFLEX NEGATIVE (Negative); URINE NITRITE-REFLEX NEGATIVE (Negative); URINE PROTEIN 1+ (Negative); URINE SPECIFIC GRAVITY >= 1.030 (1.005-1.030); URINE UROBILINOGEN 0.2 E.U./dl (0.2-1.0)
[2020-02-17 10:08] LABS: ICTOTEST (BILI CONFIRMATORY) Negative (Negative); URINE BILIRUBIN 1+ (Negative); URINE KETONES 3+ (Negative)
[2020-02-17 11:40] LABS: ALBUMIN 2.8 g/dL (3.4-5.0); CREATININE 1.1 mg/dL (0.6-1.3); MAGNESIUM 2.1 mg/dL (1.8-2.4); POTASSIUM 4.5 mmol/L (3.5-5.1)
--- NOTE | 2020-02-17 12:41 | EKG ---
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: : 1975 Requested By: Catrachita Shell Order Number: [id number] MD: Roverto Miller Measurements Intervals [place] Rate: 98 P: 67 OR: 127 QRS: 35 QRSD: 119 T: 55 QT: 365 QTc: 467 Interpretive Statements Sinus rhythm Borderline intraventricular conduction delay Baseline wander in lead(s) V2 Compared to ECG 05/11/2018 14:03:16 Borderline conduction delay now present Sinus tachycardia no longer present Electronically Signed On 02-17-2020 12:41:28 WAREHOUSE STOCK CLERK by Roverto Miller [email or web address] <ELECTRONICALLY SIGNED> By: Roverto Miller MD, FACC 02/17/20 1241 1653 1653 Roverto Miller MD, FACC /EPI
[2020-02-17 16:39] LABS: CALCIUM 8.1 mg/dL (8.5-10.1); CREATININE 1.1 mg/dL (0.6-1.3); POTASSIUM 4.3 mmol/L (3.5-5.1)
[2020-02-17 16:42] LABS: ALBUMIN 2.8 g/dL (3.4-5.0); MAGNESIUM 1.9 mg/dL (1.8-2.4); PHOSPHORUS* 2.8 mg/dL (2.5-4.9)
--- NOTE | 2020-02-17 17:16 | NUR ---
ASSUMED PATIENT CARE AT 0700. PATIENT ALERT AND ORIENTED TIMES FOUR. MINOR COMPLAINTS OF PAIN NOTED. CONTROLLED WITH ORAL MEDICATIONS. REMAINS ON INSULIN GTT PER PROTOCOL. SPOKE TO SPOUSE ON PHONE PATIENTS VOICE TOO HOARSE RIGHT NOW TO CARRY ON A CONVERSATION. PATIENT PONCE BEEN ABLE TO TRANSFER TO THE [facility] [place] X2 TODAY. MAINTAINS O2 SATS ON 2L O2 VIA NC. ALL VITAL SIGNS REMAIN WNL. VERBALIZES UNDERSTANDING OF PLAN OF CARE AND OF DISEASE PROCESS.
[2020-02-17 21:30] LABS: ALBUMIN 3.1 g/dL (3.4-5.0); CALCIUM 9.1 mg/dL (8.5-10.1); CREATININE 1.1 mg/dL (0.6-1.3); MAGNESIUM 2.1 mg/dL (1.8-2.4); POTASSIUM 4.3 mmol/L (3.5-5.1)
[2020-02-18] VITALS (28 sets, daily range): BP systolic 99–146; BP diastolic 37–76
[2020-02-18 02:36] LABS: ALBUMIN 2.4 g/dL (3.4-5.0); CALCIUM 7.6 mg/dL (8.5-10.1); CREATININE 0.9 mg/dL (0.6-1.3); MAGNESIUM 1.8 mg/dL (1.8-2.4); PHOSPHORUS* 1.7 mg/dL (2.5-4.9); POTASSIUM 3.5 mmol/L (3.5-5.1)
[2020-02-18 08:32] LABS: ALBUMIN 2.4 g/dL (3.4-5.0); CALCIUM 7.9 mg/dL (8.5-10.1); CREATININE 0.9 mg/dL (0.6-1.3); MAGNESIUM 1.7 mg/dL (1.8-2.4); PHOSPHORUS* 2.1 mg/dL (2.5-4.9); POTASSIUM 3.7 mmol/L (3.5-5.1)
[2020-02-18 09:26] LABS: ABSOLUTE LYMPHOCYTES 1.1 thou/uL (0.8-5.3); ABSOLUTE MONOCYTES 0.4 thou/uL (0.0-1.2); ABSOLUTE NEUTROPHILS 5.3 thou/uL (1.6-8.1); BASOPHILS 0.2 %; HEMOGLOBIN 9.5 gm/dL (12.0-15.0); MCH 23.5 pg (26.0-34.0); MCHC 31.8 g/dL (28.0-37.0); MCV 73.7 fL (80.0-100.0); MONOCYTES 6.6 %; MPV 6.6 fl. (7.2-11.1); NUCLEATED RBCS 0 /100WBC; PLATELET COUNT* 207 thou/uL (150-400); POLYS 77.2 %; RBC 4.07 mil/uL (4.20-5.00); RDW-CV 15.2 % (10.5-14.5); WBC 6.8 thou/uL (4.0-11.0)
--- NOTE | 2020-02-18 09:42 | NUR ---
ASSUMED CARE OF PATIENT. SEE DOCUMENTED ASSESSMENT. PT IN ENHANCED PRECAUTIONS AND ON DKA PROTOCOL
--- NOTE | 2020-02-18 10:58 | NUR ---
ANION GAP IS CLOSED AND PT CAN TRANSFER TO TELEMETRY. HAVE TITRATED OXYGEN TO ROOM AIR
--- NOTE | 2020-02-18 15:45 | NUR ---
BAE CATHETER REMOVED AND RIGHT FOOT WOUND DRESSED.
--- NOTE | 2020-02-18 16:24 | NUR ---
PATIENT PROGRESSING TOWARDS GOALS. OFF DKA PROTOCOL. APPETITE POOR DUE TO LOSS OF TASTE BUT EATING. BAE REMOVED AND FOOT WOUND DRESSED..SIGNIFICANT OTHER ALLOWED A WINDOW VISIT.
--- NOTE | 2020-02-18 16:38 | NUR ---
TO MOVE TO ROOM 118. REPORT TO MARTIN HA
--- NOTE | 2020-02-18 18:44 | NUR ---
PT A&OX4 VSS. PT TRANSFERRED FROM ICU TO UNIT IN W/C. PT IS ACCUCHECK, INSULIN ADMINISTERED ORDERED. IV TO LFA AND RFA PATENT, DRESSING C/D/I. PT RESTS IN BED WITH CALL LIGHT IN REACH, WILL CONTINUE TO MONITOR.
[2020-02-19 00:04] VITALS: BP 144/74
[2020-02-19 04:23] LABS: ABSOLUTE LYMPHOCYTES 0.8 thou/uL (0.8-5.3); ABSOLUTE MONOCYTES 0.2 thou/uL (0.0-1.2); ABSOLUTE NEUTROPHILS 3.9 thou/uL (1.6-8.1); BASOPHILS 0.4 %; HEMATOCRIT 29.2 % (37.0-47.0); HEMOGLOBIN 9.4 gm/dL (12.0-15.0); LYMPHOCYTES 15.9 %; MCH 23.7 pg (26.0-34.0); MCHC 32.3 g/dL (28.0-37.0); MCV 73.5 fL (80.0-100.0); MONOCYTES 3.3 %; MPV 6.8 fl. (7.2-11.1); NUCLEATED RBCS 0 /100WBC; PLATELET COUNT* 148 thou/uL (150-400); POLYS 80.4 %; RBC 3.97 mil/uL (4.20-5.00); RDW-CV 14.9 % (10.5-14.5); WBC 4.9 thou/uL (4.0-11.0)
[2020-02-19 04:33] LABS: ALBUMIN 2.3 g/dL (3.4-5.0); CREATININE 0.7 mg/dL (0.6-1.3); PREALBUMIN 13.7 mg/dL (18.0-35.7); TOTAL BILIRUBIN 0.3 mg/dL (<0.1-1.0); TOTAL PROTEIN 5.7 g/dL (6.4-8.2)
--- NOTE | 2020-02-19 04:42 | NUR ---
PT A&O, ON RA. MEDS GIVEN ORDERED. TYLENOL GIVEN FOR BODY ACHES. UP WITH STANDBY ASSIST. PT SLEPT MOST OF THE NIGHT. CALL LIGHT WITHIN REACH. WILL CONTINUE TO MONITOR.
[2020-02-19 05:28] VITALS: BP 159/78
[2020-02-19 05:36] LABS: GLYCOHEMOGLOBIN (HGB A1C) 11.2 % (4.8-5.6)
[2020-02-19 08:00] VITALS: BP 167/80
[2020-02-19 12:50] VITALS: BP 187/99
[2020-02-19 16:57] VITALS: BP 152/63
[2020-02-19 21:00] VITALS: BP 170/77
[2020-02-20] VITALS: BP 114/73
[2020-02-20 04:00] VITALS: BP 146/72
[2020-02-20 05:09] LABS: ABSOLUTE LYMPHOCYTES 1.5 thou/uL (0.8-5.3); ABSOLUTE MONOCYTES 0.4 thou/uL (0.0-1.2); ABSOLUTE NEUTROPHILS 3.7 thou/uL (1.6-8.1); BASOPHILS 0.6 %; EOSINOPHILS 0.3 %; HEMATOCRIT 30.1 % (37.0-47.0); HEMOGLOBIN 9.6 gm/dL (12.0-15.0); LYMPHOCYTES 26.9 %; MCH 23.4 pg (26.0-34.0); MONOCYTES 6.7 %; MPV 6.9 fl. (7.2-11.1); NUCLEATED RBCS 0 /100WBC; PLATELET COUNT* 161 thou/uL (150-400); POLYS 65.5 %; RBC 4.12 mil/uL (4.20-5.00); WBC 5.7 thou/uL (4.0-11.0)
[2020-02-20 05:27] LABS: ALBUMIN 2.4 g/dL (3.4-5.0); CALCIUM 8.4 mg/dL (8.5-10.1); CREATININE 0.7 mg/dL (0.6-1.3); POTASSIUM 3.4 mmol/L (3.5-5.1); TOTAL BILIRUBIN 0.3 mg/dL (<0.1-1.0); TOTAL PROTEIN 5.8 g/dL (6.4-8.2)
--- NOTE | 2020-02-20 07:31 | NUR ---
PATIENT HAS SLEPT OFF AND ON DURING THE NIGHT. VSS ON RA. MEDICATIONS GIVEN ORDERED AND CHARTED. PATIENT UP AD-PANKAJ AND STEADY. LUNGS DIMINISHED. NON-PRODUCTIVE COUGH. IV IN RIGHT FOREARM-SL. IV IN LEFT HAND-SL. IV ABT'S GIVEN WITHOUT ANY ADVERSE SIDE EFFECTS NOTED. PATIENT INSTRUCTED TO USE CALL LIGHT WHEN NEEDING ASSISTANCE. HOURLY ROUNDS MADE. WILL CONTINUE WITH PLAN OF CARE AND NURSING TO MONITOR.
[2020-02-20 08:00] VITALS: BP 167/88
[2020-02-20] MEDS ORDERED: PROTONIX40 M2 PO (09:15)
[2020-02-20] MEDS ORDERED: DEXAMETHASONE1 MG PO (09:15)
[2020-02-20] MEDS ORDERED: DOXYCYCLINE 10100 MG PO (09:15)
[2020-02-20 11:19] VITALS: BP 167/88
== END 2020-02-20 12:30 | disposition home or self-care (01) | DRG 871 ==
LOC: M.ERS 16:44 → M.TBA-ER 18:42 → M.ORTHSURG 20:56 → M.ICU 02-17 02:48 → M.ORTHSURG 02-18 16:45
PROVIDERS: Personal Emergency Response Attendant; ADMIT Internal Medicine; ATTEND Internal Medicine
DX: A41.89 Other specified sepsis (principal); E10.10 Type 1 diabetes mellitus with ketoacidosis without coma; U07.1 COVID-19; G92 Toxic encephalopathy; E87.1 Hypo-osmolality and hyponatremia; E10.621 Type 1 diabetes mellitus with foot ulcer; G43.909 Migraine, unspecified, not intractable, without status migrainosus; E86.0 Dehydration; Z79.899 Other long term (current) drug therapy; Z79.4 Long term (current) use of insulin; Z90.49 Acquired absence of other specified parts of digestive tract; Z88.8 Allergy status to other drugs, medicaments and biological substances